=== PATIENT | female | born 1960 | race Caucasian/White ===

== ENCOUNTER 2017-08-09 20:52 | Emergency (ER) | payer OTHER ==
[~2017-08-09] VITALS: Ht 160 cm; Wt 64.9 kg
[2017-08-09 23:44] VITALS: BP 160/80
== END 2017-08-09 23:44 | disposition home or self-care (01) ==
LOC: ED 20:52
DX: S61.512A Laceration without foreign body of left wrist, initial encounter (principal); W26.8XXA Contact with other sharp object(s), not elsewhere classified, initial encounter; Y93.89 Activity, other specified; Y99.8 Other external cause status; Y92.89 Other specified places as the place of occurrence of the external cause
CPT/HCPCS: 90715; J2001

== ENCOUNTER 2017-08-17 08:04 | Emergency (ER) | payer OTHER ==
[~2017-08-17] VITALS: Ht 157.5 cm; Wt 63.0 kg
[2017-08-17 08:09] VITALS: BP 154/73; Ht 157.5 cm; Wt 63.0 kg
== END 2017-08-17 09:10 | disposition home or self-care (01) ==
LOC: ED 08:04
DX: S61.512D Laceration without foreign body of left wrist, subsequent encounter (principal); X58.XXXD Exposure to other specified factors, subsequent encounter